=== PATIENT | female | born 1990 | race Two or more races ===

== ENCOUNTER 2018-06-10 09:07 | Inpatient (IN) | payer OTHER ==
[2018-06-10] MEDS ORDERED: CEFAZOLIN 2 GM/50 ML (PMX) 50 ML IV (10:00)
[2018-06-10] MEDS ORDERED: CARBOPROST 250 MCG INJ IM ×2 (10:00→16:00)
[2018-06-10] MEDS ORDERED: METHYLERGONOVINE 0.2 MG INJ IM ×2 (10:00→16:00)
[2018-06-10] MEDS ORDERED: CEFAZOLIN 2 GM/50 ML (PMX) 50 ML IVPB (10:00)
[2018-06-10] MEDS ORDERED: MISOPROSTOL 200 MCG TAB PR ×2 (10:00→16:00)
[2018-06-10] MEDS ORDERED: OXYTOCIN 30 UNITS/LR 500 ML IV ×2 (10:00→16:00)
[2018-06-10 10:41] LABS: ADD MAN DIFF? NO
[2018-06-10 10:45] LABS: ABNORMAL IP MESSAGE 1; BASOPHILS % 0.6 % (0.0-2.0); EOSINOPHILS % 0.4 % (0.0-7.0); HEMATOCRIT 37.4 % (37.0-47.0); HEMOGLOBIN 12.5 g/dl (12.0-16.0); LYMPHOCYTES # 1.7 10^3/ul (0.8-2.9); MEAN CORPUSCULAR HEMOGLOBIN 29.1 pg (29.0-33.0); MEAN CORPUSCULAR HGB CONC 33.4 g/dl (32.0-37.0); MEAN CORPUSCULAR VOLUME 87.2 fl (82.0-101.0); MONOCYTE # 0.6 10^3/ul (0.3-0.9); MONOCYTES % 11.3 % (0.0-11.0); NEUTROPHIL # 2.8 10^3/ul (1.6-7.5); NEUTROPHILS % 54.4 % (39.0-77.0); PLATELET COUNT 88 10^3/UL (140-415); POSITIVE DIFF @See below; RED BLOOD COUNT 4.29 10^6/ul (4.20-5.40); RED CELL DISTRIBUTION WIDTH 12.7 % (11.5-14.5)
[2018-06-10 10:45] LABS: WHITE BLOOD COUNT 5.2 10^3/ul (4.8-10.8)
[2018-06-10] MEDS: AMPICILLIN 2 GM/NS (PMX) 100 ML IV (10:59)
[2018-06-10 11:02] LABS: INR 0.87; PROTIME 11.9 Sec (11.9-14.9); PT RATIO 0.9
[2018-06-10 11:03] LABS: PARTIAL THROMBOPLASTIN TIME 25.6 Sec (25.0-35.0)
[2018-06-10 11:30] LABS: HEPATITIS B SURFACE ANTIGEN NEGATIVE (NEGATIVE)
[2018-06-10] MEDS: ONDANSETRON 4 MG INJ IV (12:20)
[2018-06-10] MEDS: LACTATED RINGER'S 1,000 ML IV ×4 (12:20→23:31)
[2018-06-10] MEDS: CITRIC ACID/SODIUM CITRATE 15 ML CUP PO (12:20)
[2018-06-10] MEDS ORDERED: PHENYLephrine (100 MCG/ML) 5ML SYG (13:23)
[2018-06-10] MEDS ORDERED: OXYTOCIN 10 UNIT INJ (13:23)
[2018-06-10] MEDS ORDERED: morphine SULFATE/PF (10 MG/10 ML) INJ (13:23)
[2018-06-10] MEDS ORDERED: BUPIVACAINE 0.75%/DEXT (SPINAL) 2 ML INJ (13:24)
[2018-06-10] MEDS ORDERED: KETOROLAC 30 MG INJ (13:50)
[2018-06-10] MEDS ORDERED: METOCLOPRAMIDE 10 MG INJ (13:50)
[2018-06-10] MEDS ORDERED: DEXAMETHASONE 4 MG/ML 1 ML INJ (13:50)
[2018-06-10] MEDS ORDERED: ONDANSETRON 4 MG INJ IV (14:00)
[2018-06-10] MEDS ORDERED: ACETAMINOPHEN 500 MG TAB PO (14:00)
[2018-06-10] MEDS: AMPICILLIN 1 GM/NS (PMX) 50 ML IV (14:00)
[2018-06-10] MEDS ORDERED: DIPHENHYDRAMINE 50 MG INJ IV (14:00)
[2018-06-10] MEDS ORDERED: NALOXONE (0.4 MG/ML) INJ IV (14:00)
[2018-06-10] MEDS ORDERED: HYDROmorphONE 0.5 MG/0.5 ML SYG IV ×2 (14:00)
[2018-06-10] MEDS ORDERED: NALBUPHINE HCL (10 MG/1 ML) INJ IV (14:00)
[2018-06-10] MEDS ORDERED: morphine 2 MG INJ IV ×2 (14:00)
[2018-06-10] MEDS ORDERED: FENTAnyl 50 MCG/ML VIAL (14:02)
[2018-06-10] MEDS: OXYTOCIN 30 UNITS/LR 500 ML IV ×2 (14:48→21:00)
[2018-06-10 15:04] LABS: RAPID PLASMA REAGIN NONREACTIVE (NR)
[2018-06-10] MEDS ORDERED: LANOLIN 7 GM TUBE TOP (16:00)
[2018-06-10] MEDS: SENNA/DOCUSATE NA (8.6MG/50MG) TAB PO (21:00)
[2018-06-11] MEDS: LACTATED RINGER'S 1,000 ML IV ×2 (03:30→07:31)
[2018-06-11] MEDS: KETOROLAC 30 MG INJ IV (06:18)
[2018-06-11 08:25] LABS: ADD MAN DIFF? NO
[2018-06-11] MEDS: SENNA/DOCUSATE NA (8.6MG/50MG) TAB PO ×2 (08:32→21:33)
[2018-06-11 08:40] LABS: WHITE BLOOD COUNT 8.8 10^3/ul (4.8-10.8)
[2018-06-11 08:40] LABS: HEMOGLOBIN 9.8 g/dl (12.0-16.0); MEAN CORPUSCULAR HEMOGLOBIN 28.6 pg (29.0-33.0); MEAN CORPUSCULAR VOLUME 87.5 fl (82.0-101.0); RED BLOOD COUNT 3.43 10^6/ul (4.20-5.40)
[2018-06-11 08:41] LABS: ABNORMAL IP MESSAGE 1; BASOPHILS % 0.3 % (0.0-2.0); EOSINOPHILS % 0.3 % (0.0-7.0); LYMPHOCYTES # 2.1 10^3/ul (0.8-2.9); LYMPHOCYTES % 23.6 % (15.0-51.0); MEAN CORPUSCULAR HGB CONC 32.7 g/dl (32.0-37.0); MONOCYTE # 0.7 10^3/ul (0.3-0.9); MONOCYTES % 8.3 % (0.0-11.0); NEUTROPHIL # 5.9 10^3/ul (1.6-7.5); PLATELET COUNT 73 10^3/UL (140-415); RED CELL DISTRIBUTION WIDTH 12.7 % (11.5-14.5)
[2018-06-11 08:44] LABS: POSITIVE DIFF @See below
[2018-06-11] MEDS: HYDROCODONE/APAP (5/325) TAB PO (09:01)
[2018-06-11] MEDS: FERROUS SULFATE (EC) 325 MG TAB PO ×2 (12:15→21:32)
[2018-06-11] MEDS: IBUPROFEN 800 MG TAB PO ×3 (12:15→21:32)
[2018-06-11] MEDS: OXYCODONE/ACETAMINOPHEN (5/325) TAB PO ×3 (16:33→22:25)
[2018-06-11] MEDS ORDERED: IBUPROFEN 800 MG TAB PO (22:00)
[2018-06-12] MEDS: OXYCODONE/ACETAMINOPHEN (5/325) TAB PO ×2 (05:06→17:06)
[2018-06-12] MEDS: IBUPROFEN 800 MG TAB PO ×3 (06:08→21:58)
[2018-06-12 08:53] LABS: ADD MAN DIFF? NO
[2018-06-12 08:57] LABS: ABNORMAL IP MESSAGE 1; BASOPHILS % 0.3 % (0.0-2.0); EOSINOPHILS % 0.5 % (0.0-7.0); HEMATOCRIT 27.9 % (37.0-47.0); LYMPHOCYTES # 2.2 10^3/ul (0.8-2.9); LYMPHOCYTES % 30.1 % (15.0-51.0); MEAN CORPUSCULAR HEMOGLOBIN 28.9 pg (29.0-33.0); MEAN CORPUSCULAR HGB CONC 32.3 g/dl (32.0-37.0); MEAN CORPUSCULAR VOLUME 89.7 fl (82.0-101.0); MONOCYTE # 0.7 10^3/ul (0.3-0.9); NEUTROPHIL # 4.4 10^3/ul (1.6-7.5); NEUTROPHILS % 59.6 % (39.0-77.0); PLATELET COUNT 63 10^3/UL (140-415); RED BLOOD COUNT 3.11 10^6/ul (4.20-5.40); RED CELL DISTRIBUTION WIDTH 13.2 % (11.5-14.5)
[2018-06-12 08:57] LABS: WHITE BLOOD COUNT 7.3 10^3/ul (4.8-10.8)
[2018-06-12 09:08] LABS: POSITIVE DIFF @See below
[2018-06-12] MEDS: SENNA/DOCUSATE NA (8.6MG/50MG) TAB PO ×2 (09:43→21:58)
[2018-06-12] MEDS: FERROUS SULFATE (EC) 325 MG TAB PO ×3 (09:43→21:58)
[2018-06-12] MEDS: MAGNESIUM HYDROXIDE 30ML CUP PO (17:05)
[2018-06-13] MEDS: IBUPROFEN 800 MG TAB PO ×2 (06:00→14:12)
[2018-06-13] MEDS: SENNA/DOCUSATE NA (8.6MG/50MG) TAB PO (09:00)
[2018-06-13] MEDS: FERROUS SULFATE (EC) 325 MG TAB PO ×2 (09:52→14:12)
[2018-06-13 10:31] LABS: ADD MAN DIFF? NO
[2018-06-13 10:45] LABS: ABNORMAL IP MESSAGE 1; BASOPHILS % 0.4 % (0.0-2.0); EOSINOPHILS # 0.1 10^3/ul (0.0-0.5); EOSINOPHILS % 1.4 % (0.0-7.0); HEMATOCRIT 30.8 % (37.0-47.0); HEMOGLOBIN 9.8 g/dl (12.0-16.0); LYMPHOCYTES # 1.8 10^3/ul (0.8-2.9); LYMPHOCYTES % 24.6 % (15.0-51.0); MEAN CORPUSCULAR HEMOGLOBIN 28.7 pg (29.0-33.0); MEAN CORPUSCULAR HGB CONC 31.8 g/dl (32.0-37.0); MEAN CORPUSCULAR VOLUME 90.1 fl (82.0-101.0); MEAN PLATELET VOLUME 13.8 fl (7.4-10.4); MONOCYTE # 0.6 10^3/ul (0.3-0.9); MONOCYTES % 7.7 % (0.0-11.0); NEUTROPHIL # 4.6 10^3/ul (1.6-7.5); NEUTROPHILS % 65.1 % (39.0-77.0); RED BLOOD COUNT 3.42 10^6/ul (4.20-5.40); RED CELL DISTRIBUTION WIDTH 13.1 % (11.5-14.5)
[2018-06-13 10:45] LABS: WHITE BLOOD COUNT 7.1 10^3/ul (4.8-10.8)
[2018-06-13 10:55] LABS: POSITIVE DIFF @See below
[2018-06-13 10:56] LABS: PLATELET COUNT 93 10^3/UL (140-415)
[2018-06-13] MEDS: DIPHTH/TET/ACEL PERTUSS (ADULT) 0.5 ML VIAL IM* (12:38)
== END 2018-06-13 17:49 | disposition home or self-care (01) | DRG 766 ==
LOC: L-D 09:07 → PP1 16:37
PROVIDERS: Obstetrics & Gynecology
PROC: 10D00Z1 Extraction of Products of Conception, Low, Open Approach (ICD-10-PCS; principal; 2018-06-10 12:30)
DX: O99.12 Other diseases of the blood and blood-forming organs and certain disorders involving the immune mechanism complicating childbirth (principal); O34.211 Maternal care for low transverse scar from previous cesarean delivery; D69.6 Thrombocytopenia, unspecified; Z3A.39 39 weeks gestation of pregnancy; Z37.0 Single live birth
CPT/HCPCS: 85025; 85610; 85730; 86592; 86850; 86900; 86901; 87340; 90715; 99464